=== PATIENT | female | born 1995 | race Caucasian/White ===

== ENCOUNTER 2017-07-29 10:30 | Emergency (ER) | payer OTHER ==
[~2017-07-29] VITALS: Ht 165.1 cm; Wt 88.0 kg
[2017-07-29 10:30] VITALS: BP 130/80; PULSE 114; RESP 18; TEMP 99; O2SAT 98
[~2017-07-29 10:30] MED LIST: NAPR500 PO
--- NOTE | 2017-07-29 10:52 | PD ---
HPI Chief Complaint: GI Complaint Time Seen by Provider: 10:51 Travel History International Travel<30 days: No Contact w/Intl Traveler<30days: No Traveled to known affect area: No History of Present Illness HPI Patient presents with concerns of dehydration. States she's had diarrhea since yesterday. She is on no anti-spasmodics. Reports poor fluid intake since [place] yesterday. Denies any nausea or vomiting. Denies any blood per stool. Denies . PFSH Past Medical History Diminished Hearing: No Immunizations Current: Yes (school shots utd.) Seizures: Yes (febrile type) Influenza Vaccination: No ?: Not LMP: 07/11/17 Past Surgical History Surgical History: No Previous Surgery Social History Alcohol Use: Yes (occas) Tobacco Use: No Substance Use: No Allergies-Medications (Allergen,Severity, Reaction): Coded Allergies: No Known Allergies (Verified Adverse Reaction, Unknown, 07/29/17) Reported Meds & Prescriptions Reported Meds & Active Scripts Active No Active Prescriptions or Reported Medications Review of Systems General / Constitutional: No: Fever Eyes: No: Visual changes HENT: No: Headaches Cardiovascular: No: Chest Pain or Discomfort Respiratory: No: Shortness of Breath Gastrointestinal: Positive: Diarrhea, No: Abdominal Pain Genitourinary: No: Dysuria Musculoskeletal: No: Pain Skin: No Rash Neurologic: No: Weakness Psychiatric: No: Depression Endocrine: No: Polydipsia Hematologic/Lymphatic: No: Easy Bruising Physical Exam Narrative GENERAL: Well-nourished, well-developed patient. SKIN: Focused skin assessment warm/dry. HEAD: Normocephalic. EYES: No scleral icterus. No injection or drainage. NECK: Supple, trachea midline. No JVD or lymphadenopathy. CARDIOVASCULAR: Regular rate and rhythm without murmurs, gallops, or rubs. RESPIRATORY: Breath sounds equal bilaterally. No accessory muscle use. GASTROINTESTINAL: Abdomen soft, non-tender, nondistended. MUSCULOSKELETAL: No cyanosis, or edema. BACK: Nontender without obvious deformity. No CVA tenderness. Data Data Last Documented VS Vital Signs Date Time Temp Pulse Resp B/P (MAP) Pulse Ox O2 Delivery O2 Flow Rate FiO2 07/29/17 10:30 99.0 114 18 130/80 (97) 98 Orders Orders Sodium Chlor 0.9% 1000 Ml Inj (Ns 1000 M (07/29/17 11:00) Basic Metabolic Panel (Bmp) (07/29/17 10:51) Dicyclomine Inj (Bentyl Inj) (07/29/17 11:00) Potassium Chloride (Kcl) (07/29/17 11:45) Labs Laboratory Tests Test 07/29/17 10:55 Blood Urea Nitrogen 6 MG/DL Creatinine 0.88 MG/DL Random Glucose 130 MG/DL Calcium Level 8.6 MG/DL Sodium Level 136 MEQ/L Potassium Level 3.3 MEQ/L Chloride Level 104 MEQ/L Carbon Dioxide Level 22.4 MEQ/L Anion Gap 10 MEQ/L Estimat Glomerular Filtration Rate 79 ML/MIN MDM Medical Decision Making Medical Screen Exam Complete: Yes Emergency Medical Condition: Yes Differential Diagnosis Viral enteritis, gastroenteritis, dehydration Narrative Course Assessment and plan discussed with patient and at bedside. Liter of normal saline and Bentyl provided. Patient feeling improved. Potassium noted. Replaced. Diagnosis Primary Impression: Enteritis Patient Instructions: General Instructions Additional Instructions: Antispasmodic as prescribed. Encouraged fluids. Follow-up with PCP. Return to emergency with any onset of new symptoms. Med/Other Pt SpecificInfo: Prescription(s) given Scripts Hyoscyamine (Levsin) 0.125 Mg Tab 0.125 MG PO Q4H for Diarrhea, #20 TAB 0 Refills Prov: Loy Ruiz MD 07/29/17 Disposition: 01 DISCHARGE HOME Condition: Good Loy Ruiz MD Jul 29, 2017 10:52
[2017-07-29] MEDS ORDERED: SODIUM CHLOR 0.9% 1000 ML INJ 1,000 ML IV ONE (11:00)
[2017-07-29] MEDS ORDERED: DICYCLOMINE HCL 20 MG/2 ML VIAL IM ONE (11:00)
[2017-07-29 11:23] LABS: CALCIUM 8.6 MG/DL (8.5-10.1)
[2017-07-29 11:24] LABS: BICARBONATE 22.4 MEQ/L (21.0-32.0)
[2017-07-29 11:27] LABS: CREATININE 0.88 MG/DL (0.50-1.00)
[2017-07-29] MEDS ORDERED: POTASSIUM CHLORIDE 20 MEQ CONTROLLED RELEASE TAB PO ONE (11:45)
[2017-07-29] MEDS ORDERED: LEVS0.123 PO (11:47)
[2017-07-29 12:13] VITALS: BP 144/79
== END 2017-07-29 12:15 | disposition home or self-care (01) ==
LOC: PHED 10:30
DX: K52.9 Noninfective gastroenteritis and colitis, unspecified (principal); R56.00 Simple febrile convulsions
CPT/HCPCS: 80048; 96360; 96372; 99284; J0500; J7030